=== PATIENT | male | born 2000 | race Caucasian/White ===

== ENCOUNTER 2020-01-28 10:20 | Outpatient (REF) | payer OTHER, SELFPAY | END 2020-01-28 10:21 | disposition home or self-care (01) | LOC: HO.LAB 10:20 | PROVIDERS: PCP Physician Assistant; Visit Provider Internal Medicine | DX: Z20.828 Contact with and (suspected) exposure to other viral communicable diseases (principal) | CPT/HCPCS: C9803; U0003 ==

== ENCOUNTER 2020-02-12 11:22 | Outpatient (REF) | payer OTHER, SELFPAY | END 2020-02-12 11:23 | disposition home or self-care (01) | LOC: HO.LAB 11:22 | PROVIDERS: Visit Provider Internal Medicine | DX: Z20.828 Contact with and (suspected) exposure to other viral communicable diseases (principal) | CPT/HCPCS: C9803; U0003 ==

== ENCOUNTER 2021-04-12 12:55 | Emergency (ER) | payer OTHER, SELFPAY ==
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
[2021-04-12 13:40] VITALS: BP 127/82; PULSE 80; RESP 18; TEMP 36.3; O2SAT 99; BMI 32.1
[2021-04-12] MEDS: Acetaminophen 325 MG TABLET 650 MG PO (13:46)
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
== END 2021-04-12 14:34 | disposition home or self-care (01) ==
PROVIDERS: Emergency Provider Emergency Medicine Emergency Medical Services; PCP Physician Assistant
DX: S39.012A Strain of muscle, fascia and tendon of lower back, initial encounter (principal); R07.81 Pleurodynia; G44.309 Post-traumatic headache, unspecified, not intractable; V43.52XA Car driver injured in collision with other type car in traffic accident, initial encounter; Y93.9 Activity, unspecified; Y92.410 Unspecified street and highway as the place of occurrence of the external cause; Y99.9 Unspecified external cause status
CPT/HCPCS: 71101; 99284

== ENCOUNTER 2021-04-21 18:05 | Outpatient (REF) | payer OTHER, SELFPAY | END 2021-04-21 18:06 | disposition home or self-care (01) | LOC: HO.LNP 18:05 | PROVIDERS: Visit Provider Hospitalist | DX: Z20.822 Contact with and (suspected) exposure to COVID-19 (principal); B34.9 Viral infection, unspecified | CPT/HCPCS: U0003; U0005 ==

== ENCOUNTER 2021-05-13 15:59 | Outpatient (REF) | payer OTHER, SELFPAY ==
[2021-05-13 16:20] LABS: MANUAL DIFF FLAG NO
[2021-05-13 16:56] LABS: Basophils Percent Auto 0.4 % (0-2); Eosinophils Absolute Auto 0.1 X10*3/uL (0.0-0.4); Eosinophils Percent Auto 1.3 % (0-4); Hematocrit 42.8 % (42.0-52.0); Hemoglobin 14.4 g/dl (14.0-18.0); Imm Gran Abs Auto 0.12 X10*3/uL (0.00-0.03); Imm Gran Pct Auto 1.5 % (0.0-0.4); Lymphocytes Absolute Auto 2.3 X10*3/uL (1.2-4.9); Lymphocytes Percent Auto 28.5 % (20-40); Mean Corpuscular HGB Conc 33.6 g/dl (31.0-36.0); Mean Corpuscular Volume 83.1 fL (80.0-98.0); Mean Platelet Volume 9.9 fL (9.4-12.4); Monocytes Absolute Auto 0.9 X10*3/uL (0.1-1.2); Monocytes Percent Auto 11.3 % (2-11); Neutrophils Absolute Auto 4.6 x10*3/uL (2.0-8.3); Platelet Count 219 X10*3/uL (160-400); Red Blood Count 5.15 X10*6/uL (4.60-5.80); Red Cell Distribution Width 12.9 % (11.0-16.0)
[2021-05-13 17:28] LABS: Anion Gap 12 (12-20); Blood Urea Nitrogen 15 mg/dL (9-16); Calcium 9.7 mg/dL (8.4-10.2); Carbon Dioxide 27 mmol/L (22-29); Chloride 104 mmol/L (96-108); Cholesterol 144 mg/dL; Estimated Glomerular Filt Rate > 60; Glucose Random 85 mg/dL (60-115); Potassium 4.1 mmol/L (3.3-5.1); Sodium 139 mmol/L (135-145)
== END 2021-05-13 16:00 | disposition home or self-care (01) ==
LOC: HO.LAB 15:59
PROVIDERS: PCP Internal Medicine; Visit Provider Internal Medicine
DX: Z00.00 Encounter for general adult medical examination without abnormal findings (principal)
CPT/HCPCS: 36415; 80048; 82465; 85025

== ENCOUNTER 2024-10-23 11:28 | Outpatient (AMB) | payer OTHER, SELFPAY ==
--- NOTE | 2024-10-23 11:30 | MHC.PC.OV ---
Vital Signs 10/23/24 11:33 Height 5 ft 9 in Weight 99.337 kg BMI 32.3 BP 118/88 Respiration 14 Pulse 77 Pulse Source Pulse Oximeter Temp 97.0 F Temp Source Temporal Artery Scan Pulse Oximetry (%) 97 Oxygen Delivery Method Room Air Intake Visit Reasons: ? allergies Compliance Auditor Required: No Accompanied by: Self / Same As Patient Allergies No Known Allergies Allergy (Verified 10/23/24 11:31) Medication List - Last Reconciled 10/23/24 by MARLEY Mota azelastine 0.05% 1 drp ophthalmic (eye) BID fexofenadine-pseudoephedrine 180-240 mg ER (Allergy Relief-D (fexofenadine)) 1 tab PO QAM olopatadine 0.1% 1 drp ophthalmic (eye) BID Tobacco use date assessed: 10/23/24 Dental Screening Dental Screen Date: 10/23/24 Did you have a dental visit in the last 12 months?: No Did you have a dental problem in the last 6 months where you did not have access to dental care?: No Was dental information given to patient?: No HPI HPI Comments History of Present Illness Details 24-year-old male without any significant past medical history presents to the office today to establish care and for annual physical exam. He currently lives with his mother and feels safe there. 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 Reports alcohol use every few weeks, about 2-3 shots. No history of cigarette smoking. No drugs including marijuana. Prior to his symptoms below, he was going to the gym regularly with both cardio and weights. Reports his diet ?could be better). Last PCP was Dr. Nichols, last seen 2021 Concerns: Allergies- ongoing last few weeks. Has nasal congestion, red/itchy/watery eyes, rhinorrhea. Has tried ceterizine (no relief), benadryl some help. Hx similar symptoms several years around this time.Initially sore throat, occ dry cough to clear throat. No fevers, chills, sinus pressure, PND, otalgia, muffled hearing, sob, wheezing, chest pain. No recent illness. Health Maintenance: FH breast cancer and paternal aunt, ?<45. Would like to hold on genetic testing at this time Colonoscopy to start at age 45 ROS: General: No fevers, malaise, unintentional weight loss HEENT: No blurred vision, diplopia. See HPI Neck - no adenopathy Cardiovascular: No chest pain, palpitations, or leg edema Respiratory: No shortness of breath, wheezing, cough GI: No dysphagia, odynophagia, globus sensation. No abdominal pain, nausea, vomiting, diarrhea, constipation, melena, hematochezia : No dysuria, hematuria, increased urinary frequency, decreased urinary output. No testicular swelling or pain. No penile discharge MSK: No myalgia, back pain, arthralgias Neuro: No headaches, weakness, paresthesias Psych: no depression/anxiery. No AH/VH. No SI/HI Skin: No rashes or lesions EXAM: Constitutional - Awake and Alert, No apparent distress Eyes - PERRLA, EOMI. Anicteric Ears - external ears normal, L cancal initally with cerumen impaction, with lavage/curette canals clear, TMs intact and pearly doll with good cone of [id number] levels noted behind left TM Nose- septum midline, no sinus tenderness. Nares bilaterally with boggy edematous turbinates with white/yellow mucus Mouth/throat- mucosa moist, tongue and uvula midline, no erythema/edema or tonsillar adenopathy. Posterior oropharynx cobblestoning noted Neck-trachea midline, thyroid symmetric without palpable nodules, no adenopathy Cardiovascular - S1S2, RRR, No edema Respiratory - Normal lung expansion, Normal respiratory effort, No respiratory distress, CTA bilaterally Gastrointestinal - NT / ND; +BS; No rebound or guarding - No CVA tenderness Extremities - no calf tenderness bilaterally, no swelling Musculoskeletal - Normal inspection, normal ROM Skin - Warm/Dry, no concerning lesions Neurological - Alert & oriented x3, CN II-XII in tact, 5/5 strength BUE and BLE, 2+ patellar reflexes, sensation intact Psychological - Appropriate affect [facility] Medical History (Updated 10/23/24 @ 12:11 by MARLEY Mota) Obesity Surgical History (Updated 10/23/24 @ 11:51 by MARLEY Mota) No pertinent past surgical history Family History (Updated 10/23/24 @ 11:53 by MARLEY Mota) Paternal Aunt Family history of breast cancer in female Social History Housing: House Patient Tobacco Use Status: Never used Tobacco e-Cigarette/Vaping Use: Never Used service: No Current occupational status: employed Cognitive needs: No Hearing needs: No Vision needs: No Physical exam (Primary Care) Vital Signs: Last Vital Signs Temp 97.0 F 10/23/24 11:33 Pulse 77 10/23/24 11:33 Resp 14 10/23/24 11:33 BP 118/88 10/23/24 11:33 Pulse Ox 97 10/23/24 11:33 Oxygen Delivery Method Room Air 10/23/24 11:33 BMI result Body Mass Index 32.3 Tobacco/Smoking Status: Tobacco use Status Tobacco use date assessed 10/23/24 10/23/24 11:36 Patient Tobacco Use Status Never used Tobacco 10/23/24 11:36 e-Cigarette/Vaping Use Never Used 10/23/24 11:36 Coding Level of Care Code New Pt Prev Care 18-39yr([id number] Diagnoses Routine medical exam Z00.00 Obesity E66.9 Allergic rhinitis J30.9 Assessment & Plan Assessment & Plan (1) Routine medical exam: Code(s): Z00.00 - Encounter for general adult medical examination without abnormal findings Plan: 24-year-old male presenting for evaluation and annual physical exam. Plan as below (2) Obesity: Code(s): E66.9 - Obesity, unspecified Category: Medical Plan: Weight loss efforts encouraged. Discussed healthy diet with emphasis on protein, fruits, vegetables with limited refined sugars and simple carbohydrates. Recommend avoidance of highly processed foods. Recommend moderate intensity exercise for at least 150 minutes weekly with both cardiovascular and weights. (3) Allergic rhinitis: Code(s): J30.9 - Allergic rhinitis, unspecified Category: Medical Plan: Fexofenadine-D, Pataday drops, Astelin drops ordered. Advised to contact the office if no improvement and will refer to Allergy or ENT Plan Follow-up in 1 year for annual physical exam. Routine screening labs as ordered below Declines genetic testing at this time, family history breast cancer in female less than age 45. Colonoscopies H 45 Continue following for annual skin exams and use sun protection Annual eye exams Wear seat belt in car Recommend regular exercise and healthy diet Orders: Orders Liver Panel Today Z00.00 - Encounter for general adult medical examination without abnormal findings Basic Metabolic Panel Today Z00.00 - Encounter for general adult medical examination without abnormal findings Complete Blood Count Auto Diff Today Z00.00 - Encounter for general adult medical examination without abnormal findings Lipid Panel Today Z00.00 - Encounter for general adult medical examination without abnormal findings Medications: New fexofenadine-pseudoephedrine 180-240 mg ER (Allergy Relief-D (fexofenadine)) 1 tab PO QAM 90 tabs 0RF azelastine 0.05% 1 drp ophthalmic (eye) BID 6 mL 2RF olopatadine 0.1% separate doses by at least 6-8 hours 1 drp ophthalmic (eye) BID 5 mL 2RF Patient Instructions: Portal: Go to [facility], click Patient Portal
[2024-10-23 11:33] VITALS: BP 118/88; PULSE 77; RESP 14; TEMP 36.1; O2SAT 97; BMI 32.3
== END 2024-10-23 12:10 | disposition home or self-care (01) ==
LOC: HO.HMCHD 11:29
PROVIDERS: PCP Internal Medicine; Visit Provider Physician Assistant
DX: Z00.00 Encounter for general adult medical examination without abnormal findings (principal); E66.9 Obesity, unspecified; J30.9 Allergic rhinitis, unspecified

== ENCOUNTER 2024-10-23 12:13 | Outpatient (REF) | payer SELFPAY ==
[2024-10-23 13:12] LABS: MANUAL DIFF FLAG NO
[2024-10-23 13:23] LABS: Hematocrit 48.5 % (42.0-52.0); Hemoglobin 15.9 g/dl (14.0-18.0); Imm Gran Abs Auto 0.09 X10*3/uL (0.00-0.03); Imm Gran Pct Auto 1.1 % (0.0-0.4); Lymphocytes Absolute Auto 2.3 X10*3/uL (1.2-4.9); Mean Corpuscular HGB Conc 32.8 g/dl (31.0-36.0); Mean Corpuscular Hemoglobin 27.9 pg (27.0-33.0); Mean Corpuscular Volume 85.1 fL (80.0-98.0); NRBC Abs Auto 0.000 X10*3/uL (0.0-0.012); NRBC Pct Auto 0.0 /100WBC (0.0-0.2); Platelet Count 236 X10*3/uL (160-400); Red Blood Count 5.70 X10*6/uL (4.60-5.80); White Blood Count 8.2 X10*3/uL (4.8-10.8)
[2024-10-23 13:49] LABS: Alanine Aminotransferase 35 U/L (0-40); Albumin Level 4.9 g/dL (3.5-5.0); Alkaline Phosphatase 60 U/L (39-117); Anion Gap 11 (12-20); Aspartate Amino Transferase 25 U/L (5-37); Blood Urea Nitrogen 16 mg/dL (9-16); Calcium 9.3 mg/dL (8.4-10.2); Carbon Dioxide 27 mmol/L (22-29); Chloride 107 mmol/L (96-108); Cholesterol 154 mg/dL (<200); Estimated Glomerular Filt Rate > 60; HDL Cholesterol 41 mg/dL (>40); Potassium 4.1 mmol/L (3.3-5.1); Sodium 141 mmol/L (135-145); Total Protein 8.4 g/dL (6.5-8.0); Triglycerides 51 mg/dL (<150)
== END 2024-10-23 12:14 | disposition home or self-care (01) ==
LOC: HO.10HDL 12:13
PROVIDERS: Visit Provider Physician Assistant
DX: Z00.00 Encounter for general adult medical examination without abnormal findings (principal); Z13.6 Encounter for screening for cardiovascular disorders
CPT/HCPCS: 36415; 80048; 80061; 80076; 85025